=== PATIENT | male | born 1955 | race African-American/Black ===

== ENCOUNTER 2017-07-21 15:12 | Emergency (ER) | payer BC ==
[2017-07-21 15:16] VITALS: BP 125/77; PULSE 60; TEMP 97.4; BMI 23.6
[2017-07-21 16:35] LABS: BASOPHIL 1.4 % (0-2.0); EOSINOPHIL 3.4 % (0-4.5); MCH 32.2 pg (25.7-33.7); MEAN CELL VOLUME 94.7 fl (80-96); MEAN PLT VOLUME 8.9 fl (7.5-11.1); NEUTROPHILS 27.1 % (42.8-82.8); PLATELET COUNT 155 K/MM3 (134-434); RDW 12.6 % (11.9-15.9); WHITE BLOOD COUNT 2.1 K/mm3 (4.0-10.0)
[2017-07-21 16:37] LABS: URINE APPEARANCE CLEAR; URINE BILIRUBIN NEGATIVE (NEGATIVE); URINE BLOOD 3+ (NEGATIVE); URINE COLOR STRAW; URINE GLUCOSE (UA) NEGATIVE (NEGATIVE); URINE KETONE NEGATIVE (NEGATIVE); URINE NITRITE NEGATIVE (NEGATIVE); URINE PROTEIN NEGATIVE (NEGATIVE); URINE UROBILINOGEN NEGATIVE mg/dL (0.2-1.0)
[2017-07-21 16:42] LABS: URINE BACTERIA RARE /hpf (NONE SEEN); URINE MUCUS RARE; URINE RBC 1 /hpf (0-3); URINE WBC <1 /hpf (3-5)
[2017-07-21 16:58] LABS: ALBUMIN 3.8 g/dl (3.4-5.0); ALK PHOS 103 U/L (45-117); ANION GAP 7 (8-16); BILIRUBIN,TOTAL 0.5 mg/dL (0.2-1.0); CALCIUM 8.5 mg/dL (8.5-10.1); CO2 28 mmol/L (21-32); CREATININE 1.3 mg/dL (0.7-1.3); GLUCOSE,RANDOM 76 mg/dL (74-106); SGOT/AST 27 U/L (15-37); SGPT/ALT 36 U/L (12-78); TOT PROT 7.6 g/dl (6.4-8.2)
--- NOTE | 2017-07-21 17:57 | PDOC ---
History of Present Illness - General History Source: Patient Exam Limitations: No Limitations - History of Present Illness Travel History: No Initial Comments: 07/21/17 17:49 61-year-old male with history of prostate CA 14 years ago presents the ED with painless hematuria 3 and this morning with passage of a few small clots. Patient states is followed by urologist in [facility] and is followed by primary care physician at [facility]. Patient denies abdominal pain is presently stated in triage, fever, chills, history of renal colic, recent MVA, recent penile injury, testicular pain, or difficulty urinating. Timing/Duration: reports: resolved prior to arrival Aggravating Factors: improves with: Voiding <Mahi Ingram - Last Filed: 07/21/17 18:14> <Jersey Hernandez - Last Filed: 07/21/17 20:57> - General Chief Complaint: Hematuria Stated Complaint: BLOOD IN URINE Time Seen by Provider: 07/21/17 15:53 Past History - Travel Traveled outside of the country in the last 30 days: No - Past Medical History Cancer: Yes (PROSTATE) - Suicide/Smoking/Psychosocial Hx Smoking Status: No Smoking History: Never smoked Number of Cigarettes Smoked Daily: 0 Hx Alcohol Use: Yes (OCCASIONALLY) Drug/Substance Use Hx: No Patient Lives Alone: No Lives with/in: spouse/SO <Mahi Ingram - Last Filed: 07/21/17 18:14> <Jersey Hernandez - Last Filed: 07/21/17 20:57> - Past Medical History Allergies/Adverse Reactions: Allergies Allergy/AdvReac Type Severity Reaction Status Date / Time chlorpheniramine maleate Allergy Verified 07/21/17 15:16 [From Coricidin HBP Cough & Cold] dextromethorphan Hbr Allergy Verified 07/21/17 15:16 [From Coricidin HBP Cough & Cold] Home Medications: Ambulatory Orders Aspirin [Aspirin EC] 81 mg PO DAILY 07/21/17 Review of Systems - Review of Systems Able to Perform ROS?: No Is the patient limited Sami proficient: No Constitutional: No: Symptoms Reported HEENTM: No: Symptoms Reported Respiratory: No: Symptoms reported Cardiac (ROS): No: Symptoms Reported ABD/GI: No: Symptoms Reported : Yes: Hematuria. No: Flank Pain, Testicular Pain Musculoskeletal: No: Symptoms Reported Integumentary: No: Symptoms Reported Neurological: No: Symptoms reported Endocrine: No: Symptoms Reported Hematologic/Lymphatic: No: Symptoms Reported <Mahi Ingram - Last Filed: 07/21/17 18:14> *Physical Exam - Vital Signs Last Vital Signs Temp Pulse Resp BP Pulse Ox 97.4 F L 60 18 125/77 99 07/21/17 15:13 07/21/17 15:13 07/21/17 15:13 07/21/17 15:13 07/21/17 15:13 - Physical Exam General Appearance: Yes: Nourished, Appropriately Dressed. No: Apparent Distress HEENT: positive: EOMI, FELIZ. negative: Pale Conjunctivae Neck: positive: Supple Respiratory/Chest: positive: Lungs Clear, Normal Breath Sounds. negative: Respiratory Distress, Accessory Muscle Use Cardiovascular: positive: Regular Rhythm, Regular Rate. negative: Murmur Gastrointestinal/Abdominal: positive: Soft. negative: Tenderness Male Genitalia: positive: normal genitalia. negative: testicular tenderness, hematuria Musculoskeletal: negative: CVA Tenderness Extremity: positive: Normal Capillary Refill Integumentary: positive: Normal Color, Warm, Moist Neurologic: positive: Normal Mood/Affect, Motor Strength 5/5 (ambulatory) <Mahi Ingram - Last Filed: 07/21/17 18:14> - Vital Signs Last Vital Signs Temp Pulse Resp BP Pulse Ox 97.4 F L 60 18 125/77 99 07/21/17 15:13 07/21/17 15:13 07/21/17 15:13 07/21/17 15:13 07/21/17 15:13 <Jersey Hernandez - Last Filed: 07/21/17 20:57> ED Treatment Course - LABORATORY CBC & Chemistry Diagram: 07/21/17 16:28 07/21/17 16:28 - ADDITIONAL ORDERS Additional order review: Laboratory Results 07/21/17 07/21/17 16:28 16:28 Sodium 140 Potassium 4.2 Chloride 105 Carbon Dioxide 28 Anion Gap 7 L BUN 16 Creatinine 1.3 Creat Clearance w eGFR 56.50 Random Glucose 76 Calcium 8.5 Total Bilirubin 0.5 AST 27 ALT 36 Alkaline Phosphatase 103 Total Protein 7.6 Albumin 3.8 Urine Color Straw Urine Appearance Clear Urine pH 6.0 Urine Protein Negative Urine Glucose (UA) Negative Urine Ketones Negative Urine Blood 3+ H Urine Nitrite Negative Urine Bilirubin Negative Urine Urobilinogen Negative Urine RBC 1 Urine WBC <1 Urine Bacteria Rare Urine Mucus Rare 07/21/17 16:28 RBC 4.28 MCV 94.7 MCHC 34.0 RDW 12.6 MPV 8.9 Neutrophils % 27.1 L Lymphocytes % 53.0 H Monocytes % 15.1 H Eosinophils % 3.4 Basophils % 1.4 - RADIOLOGY Radiology Studies Ordered: Category Date Time Status PELVIC / BLADDER US [US] Stat Ultrasound 07/21/17 16:36 Ordered <Mahi Ingram - Last Filed: 07/21/17 18:14> - LABORATORY CBC & Chemistry Diagram: 07/21/17 16:28 07/21/17 16:28 - ADDITIONAL ORDERS Additional order review: Laboratory Results 07/21/17 07/21/17 16:28 16:28 Sodium 140 Potassium 4.2 Chloride 105 Carbon Dioxide 28 Anion Gap 7 L BUN 16 Creatinine 1.3 Creat Clearance w eGFR 56.50 Random Glucose 76 Calcium 8.5 Total Bilirubin 0.5 AST 27 ALT 36 Alkaline Phosphatase 103 Total Protein 7.6 Albumin 3.8 Urine Color Straw Urine Appearance Clear Urine pH 6.0 Ur Specific [place] <= 1.005 Urine Protein Negative Urine Glucose (UA) Negative Urine Ketones Negative Urine Blood 3+ H Urine Nitrite Negative Urine Bilirubin Negative Urine Urobilinogen Negative Ur Leukocyte Esterase Negative Urine RBC 1 Urine WBC <1 Urine Bacteria Rare Urine Mucus Rare 07/21/17 16:28 RBC 4.28 MCV 94.7 MCHC 34.0 RDW 12.6 MPV 8.9 Neutrophils % 27.1 L Lymphocytes % 53.0 H Monocytes % 15.1 H Eosinophils % 3.4 Basophils % 1.4 <Jersey Hernandez - Last Filed: 07/21/17 20:57> Medical Decision Making - Medical Decision Making 07/21/17 18:06 Patient with 2-3 episodes of painless hematuria this morning with passage of small clots. Patient currently voiding clear yellow urine in the ER. Patient with history of prostate CA 14 years ago and has an urologist at [facility]. Patient ordered for labs including CBC, comp, urinalysis urine culture and pelvic/bladder ultrasound. 07/21/17 18:07 Laboratory Tests 07/21/17 07/21/17 07/21/17 16:28 16:28 16:28 WBC 2.1 L Hgb 13.8 Hct 40.5 Neutrophils % 27.1 L Lymphocytes % 53.0 H Monocytes % 15.1 H Sodium 140 Potassium 4.2 Chloride 105 Carbon Dioxide 28 Anion Gap 7 L BUN 16 Creatinine 1.3 Random Glucose 76 Calcium 8.5 Total Bilirubin 0.5 AST 27 ALT 36 Alkaline Phosphatase 103 Urine Blood 3+ H Urine Nitrite Negative Ur Leukocyte Esterase Pending Urine RBC 1 Urine WBC <1 07/21/17 18:14 ultrasound results pending. No previous labs for comparison. <Mahi Ingram - Last Filed: 07/21/17 18:14> *DC/Admit/Observation/Transfer <Mahi Ingram - Last Filed: 07/21/17 18:14> - Discharge Dispostion Admit: No <Jersey Hernandez - Last Filed: 07/21/17 20:57> Diagnosis at time of Disposition: Hematuria Qualifiers: Hematuria type: benign essential microscopic Qualified Code(s): R31.1 - Benign essential microscopic hematuria; R31.1 - Benign essential microscopic hematuria - Discharge Dispostion Disposition: HOME Condition at time of disposition: Stable - Referrals Referrals: Martín Atkins MD [Staff Physician] - - Patient Instructions Printed Discharge Instructions: DI for Hematuria Additional Instructions: Follow up with Dr. Atkins (Urology) this week for further evaluation. Also, follow up with your Primary Care Provider. If your symptoms worsen, such as fever, abdominal pain, nausea, vomiting, back pain, sweating, weakness, dizziness, poor appetite, return immediately for further evaluation otherwise; please follow up with urology and your doctor. Print Language: NORWEGI[place]
[2017-07-21 18:58] LABS: URINE LEUK ESTERASE Negative (NEGATIVE)
== END 2017-07-21 21:14 | disposition home or self-care (01) ==
LOC: JER 15:12
DX: R31.1 Benign essential microscopic hematuria (principal); Z85.46 Personal history of malignant neoplasm of prostate; Z88.8 Allergy status to other drugs, medicaments and biological substances
CPT/HCPCS: 36415; 76856-TC; 80053; 81003; 81015; 85025; 87086; 99283-25